=== PATIENT | female | born 1965 | race Caucasian/White ===

== ENCOUNTER 2018-03-27 01:53 | Emergency (ER) | payer BC ==
[2018-03-27] MEDS ORDERED: CEFTRIAXONE SODIUM 1 GM ONE (02:10)
[2018-03-27] MEDS ORDERED: LIDOCAINE HCL-MPF 1% 2ML VIAL ONE (02:11)
[2018-03-27] MEDS ORDERED: ACETAMINOPHEN-CODEINE ELIXIR 5 ML UDCUP ONE (02:11)
== END 2018-03-27 02:27 | disposition home or self-care (01) ==
LOC: EDH 01:53
DX: H72.91 Unspecified perforation of tympanic membrane, right ear (principal); I10 Essential (primary) hypertension
CPT/HCPCS: 96372; 99283; J0696; J3490

== ENCOUNTER 2018-08-09 23:39 | Emergency (ER) | payer BC ==
[2018-08-10 00:17] LABS: EOSINOPHILS % (AUTO) 0.8 % (0.0-8.0); HEMATOCRIT 43.5 % (36-48); MEAN CORPUSCULAR VOLUME 84.7 fL (79-99); MONOCYTES % (AUTO) 8.4 % (3.0-13.0); NEUTROPHILS % (AUTO) 67.8 % (40.0-77.0); NUCLEATED RED BLOOD CELLS 0.1 % (0.0-0.19); PLATELET COUNT (AUTO) 222 K/uL (130-400); RED BLOOD CELL COUNT(AUTO) 5.14 MIL/uL (4.00-5.50); RED CELL DISTRIBUTION WIDTH 13.8 % (11.0-15.5); WHITE BLOOD COUNT (AUTO) 7.3 K/uL (4.8-10.8)
[2018-08-10 00:32] LABS: CREATININE 0.8 mg/dL (0.5-1.5); POTASSIUM 4.3 mmol/L (3.5-5.1)
[2018-08-10] MEDS ORDERED: DEXAMETHASONE SOD PHOSPHATE 10MG/ML 1ML VIAL ONE (11:24)
== END 2018-08-10 01:47 | disposition home or self-care (01) ==
LOC: EDH 23:39
DX: I10 Essential (primary) hypertension (principal); I48.91 Unspecified atrial fibrillation; Z72.0 Tobacco use
CPT/HCPCS: 36415; 80048; 85025; 93005; J1100